=== PATIENT | female | born 1990 | race American Indian/Alaskan Native ===

== ENCOUNTER 2019-04-17 03:30 | Emergency (ER) | payer MEDICAID ==
[2019-04-17] MEDS ORDERED: ONDANSETRON 4 MG/2 ML INJ IV ONE (04:12)
[2019-04-17] MEDS ORDERED: SODIUM CHLORIDE 0.9% 1000 ML 1,000 ML IV ONE (04:12)
[2019-04-17] MEDS ORDERED: fentaNYL 100 MCG/2 ML INJ IV ONE (04:29)
[2019-04-17 04:37] LABS: Basophils # (Auto) 0.1 K/mm3 (0.0-0.1); Basophils % (Auto) 0.4 % (0.0-1.8); Eosinophils # (Auto) 0.1 K/mm3 (0.0-0.4); Eosinophils % (Auto) 0.6 % (0.0-4.3); Hematocrit 43.8 % (30.3-42.9); Hemoglobin 14.2 gm/dl (10.1-14.3); Lymphocytes # (Auto) 1.5 K/mm3 (1.2-5.4); Lymphocytes % (Auto) 10.1 % (13.4-35.0); Mean Corpuscular HGB Conc 33 % (30-34); Mean Corpuscular Volume 85 fl (79-97); Monocytes # (Auto) 0.5 K/mm3 (0.0-0.8); Monocytes % (Auto) 3.6 % (0.0-7.3); Platelet Count 247 K/mm3 (140-440); Red Blood Count 5.18 M/mm3 (3.65-5.03); Red Cell Distribution Width 14.4 % (13.2-15.2)
[2019-04-17 04:57] LABS: Alanine Aminotransferase 13 units/L (7-56); Albumin 4.7 g/dL (3.9-5); BUN/Creatinine Ratio 20; Blood Urea Nitrogen 14 mg/dL (7-17); Calcium 9.6 mg/dL (8.4-10.2); Hemolysis Index 10
--- NOTE | 2019-04-17 06:35 | Cat Scan Report ---
CT ABDOMEN AND PELVIS WITHOUT CONTRAST INDICATION / CLINICAL INFORMATION: right-sided abdominal pain. TECHNIQUE: Axial CT images were obtained through the abdomen and pelvis without IV contrast. All CT scans at [facility] are performed using CT dose reduction for ALARA by means of automated exposure control. COMPARISON: None available. FINDINGS: LOWER CHEST: No significant abnormality. LIVER: No significant abnormality. GALLBLADDER: No significant abnormality. BILE DUCTS: No significant abnormality. PANCREAS: No significant abnormality. SPLEEN: No significant abnormality. ADRENALS: No significant abnormality. RIGHT KIDNEY and URETER: No significant abnormality. LEFT KIDNEY and URETER: No significant abnormality. STOMACH and SMALL BOWEL: Fluid filled, nondilated small bowel with mild wall thickening diffusely. COLON: Small amount of fluid throughout the colon without inflammation. APPENDIX: No significant abnormality. PERITONEUM: Small amount of free fluid in the pelvis. No free air. No fluid collection. LYMPH NODES: No significant adenopathy. AORTA and ARTERIES: No significant abnormality. IVC and VEINS: No significant abnormality. URINARY BLADDER: No significant abnormality. REPRODUCTIVE ORGANS: 2 cm left ovarian cyst is almost certainly benign. ADDITIONAL FINDINGS: None. SKELETAL SYSTEM: No significant abnormality. IMPRESSION: 1. Fluid-filled, nondilated small and large bowel which can be seen with enteritis. No bowel obstruct ion. Signer Name: Krystal Vazquez MD Signed: 04/17/2019 6:30 AM Workstation Name: [id number]
--- NOTE | 2019-04-17 06:51 | Emergency Department Report ---
ED N/V/D HPI - General Chief complaint: Nausea/Vomiting/Diarrhea Stated complaint: NAUSEA/EMESIS/ABD PAIN Time Seen by Provider: 04/17/19 06:45 Source: patient, EMS Mode of arrival: Stretcher Limitations: No Limitations - History of Present Illness Initial comments: 29-year-old female presents to ED with nausea, vomiting, diarrhea since last night. Patient reports onset of symptoms at 9 PM. Patient states she believes she has food poisoning from eating [employer]. Patient reports diffuse abdominal cramping, denies fever. Denies any sick contacts. MD complaint: nausea, vomiting, diarrhea, abdominal pain -: During the night Description of Vomiting: food contents Description of Diarrhea: water Associated Abdominal Pain: Yes Location: diffuse Radiation: none Severity: moderate Quality: cramping Consistency: constant Improves with: none Worsens with: none Context: possible food poisoning Associated Symptoms: nausea/vomiting. denies: fever/chills - Related Data Previous Rx's Medication Instructions Recorded Last Taken Type Dicyclomine [Bentyl] 20 mg PO QID PRN #20 tablet 04/17/19 Unknown Rx Ondansetron [Zofran Odt] 4 mg PO Q8HR PRN #20 tab.rapdis 04/17/19 Unknown Rx Allergies Allergy/AdvReac Type Severity Reaction Status Date / Time No Known Allergies Allergy Unverified 04/17/19 04:29 ED Review of Systems ROS: Stated complaint: NAUSEA/EMESIS/ABD PAIN Other details as noted in HPI Comment: All other systems reviewed and negative Constitutional: denies: chills, fever Gastrointestinal: abdominal pain, nausea, vomiting, diarrhea ED Past Medical Hx - Past Medical History Previous Medical History?: No - Surgical History Past Surgical History?: No - Social History Smoking Status: Never Smoker Substance Use Type: None - Medications Home Medications: Home Medications Medication Instructions Recorded Confirmed Last Taken Type Dicyclomine [Bentyl] 20 mg PO QID PRN #20 tablet 04/17/19 Unknown Rx Ondansetron [Zofran Odt] 4 mg PO Q8HR PRN #20 tab.rapdis 04/17/19 Unknown Rx ED Physical Exam - General Limitations: No Limitations General appearance: alert, in no apparent distress - Head Head exam: Present: atraumatic, normocephalic - Eye Eye exam: Present: normal appearance, PERRL, EOMI - ENT ENT exam: Present: mucous membranes moist - Neck Neck exam: Present: normal inspection - Respiratory Respiratory exam: Present: normal lung sounds bilaterally. Absent: respiratory distress - Cardiovascular Cardiovascular Exam: Present: regular rate, normal rhythm - GI/Abdominal GI/Abdominal exam: Present: soft. Absent: distended, tenderness - Extremities Exam Extremities exam: Present: normal inspection - Neurological Exam Neurological exam: Present: alert, oriented X3 - Psychiatric Psychiatric exam: Present: normal affect, normal mood - Skin Skin exam: Present: warm, dry, intact, normal color ED Course Vital Signs 04/17/19 04/17/19 04/17/19 03:41 03:45 04:40 Temperature 97.3 F L Pulse Rate 76 Respiratory 18 16 16 Rate Blood Pressure 103/71 [Left] O2 Sat by Pulse 99 Oximetry 04/17/19 07:23 Temperature 99.0 F Pulse Rate 60 Respiratory 18 Rate Blood Pressure 84/39 [Left] O2 Sat by Pulse 100 Oximetry ED Medical Decision Making - Lab Data Result diagrams: 04/17/19 04:22 04/17/19 04:22 - Radiology Data Radiology results: report reviewed, image reviewed - Medical Decision Making 29-year-old female with gastroenteritis. IV fluids, Zofran, fentanyl given. Patient reports relief of symptoms. No further emesis here in ED. CT scan unremarkable other than enteritis. Patient initially had a low blood pressure, however the heart rate is normal. Blood pressure is improved to low 100s, likely not uncommon for patient as she is smaller stature, only 50 kg with height of 5'2". Prescriptions given for Zofran and Bentyl. Advised to take Imodium [id number]. Outpatient follow-up advised. Return precautions given. - Differential Diagnosis gastroenteritis, pancreatitis, uti Critical care attestation.: If time is entered above; I have spent that time in minutes in the direct care of this critically ill patient, excluding procedure time. ED Disposition Clinical Impression: Gastroenteritis Disposition: DC-01 TO HOME OR SELFCARE Is pt being admited?: No Condition: Stable Instructions: Gastroenteritis (ED) Prescriptions: Dicyclomine [Bentyl] 20 mg PO QID PRN #20 tablet PRN Reason: abdominal pain Ondansetron [Zofran Odt] 4 mg PO Q8HR PRN #20 tab.rapdis PRN Reason: Vomiting Referrals: LEIDY SANTAMARIA MD [Primary Care Provider] - 3-5 Days Time of Disposition: 08:49
[2019-04-17 07:54] VITALS: BP 84/39
[2019-04-17 08:41] LABS: Bilirubin,Urine NEG (Negative); Blood,Urine NEG (Negative); Color,Urine Yellow (Yellow); Mucus,Urine 1+ /HPF; Protein,Urine <15 mg/dL mg/dL (Negative); Urobilinogen,Urine < 2.0 mg/dL (<2.0)
== END 2019-04-17 09:00 | disposition home or self-care (01) ==
LOC: ED 03:30
DX: K52.9 Noninfective gastroenteritis and colitis, unspecified (principal); Z79.899 Other long term (current) drug therapy
CPT/HCPCS: 36415; 74177; 80053; 81001; 83690; 84703; 85025; 87086; 96361; 96374; 96375; 99284; J2405; J3010; J7030; Q9967